=== PATIENT | male | born 1950 | race Caucasian/White ===

== ENCOUNTER → 2017-12-25 | Outpatient (CLI) | payer MEDICARE ==
--- NOTE | 2017-12-25 11:25 | EST ---
EXERCISE STRESS DATE OF SERVICE: 12/25/2017 AGE: 67 SEX: Male HT: 5'11" WT: 260 PROTOCOL: Abhijit STAGE: II DURATION OF EXERCISE: 7-1/2 minutes HEART RATE REST: 66 BLOOD PRESSURE REST: 136/99 MAXIMUM HEART RATE ACHIEVED: 137 MAXIMUM BLOOD PRESSURE: 242/81 85% MPHR: 131 100% MPHR: 154 METS: 9 INDICATIONS: Chest pain. CLINICAL INFORMATION: Baseline EKG shows sinus rhythm, normal axis, normal intervals. Patient exercised on Abhijit protocol for a total of 7-1/2 minutes achieving 9 METS, 88% of predicted maximal heart rate without chest pain or diagnostic ST-segment depression. CONCLUSIONS: 1. Average exercise tolerance. 2. Negative stress test by EKG criteria. MMODL / IJN: [id number] /
== END | disposition home or self-care (01) ==
LOC: RADNMMAIN 10:06
PROVIDERS: ATTEND Nurse Practitioner Family
DX: I10 Essential (primary) hypertension (principal); E78.5 Hyperlipidemia, unspecified
CPT/HCPCS: 93017

== ENCOUNTER 2018-01-04 06:32 | Day surgery (SDC) | payer MEDICARE ==
[2018-01-02 14:35] VITALS: BMI 36.2
[~2018-01-04 06:32] MED LIST: LACTATED RINGERS 1,000 ML IV SCH
[2018-01-04 06:58] VITALS: RESP 16; TEMP 97.3
[2018-01-04] MEDS ORDERED: LIDOCAINE 1% 20 ML VIAL (10MG/ML) FOR IV START INTRADERMA ONE (07:03)
[2018-01-04] MEDS ORDERED: PROPOFOL 10 MG/ML 20 ML VIAL IV ONE (07:47)
--- NOTE | 2018-01-04 08:11 | P.PCN ---
Date of Procedure: 01/04/18 Procedure(s) Performed: BRIEF HISTORY: Patient is a 67-year-old pleasant White male, scheduled for an elective colonoscopy as a part of screening for colorectal neoplasia PROCEDURE PERFORMED: Colonoscopy. PREOPERATIVE DIAGNOSIS: Screening for colon cancer. IV sedation per Anesthesia. PROCEDURE: After informed consent was obtained, the patient, was brought into the endoscopy unit. IV sedation was administered by Anesthesia under continuous monitoring. Digital rectal examination was normal. Initially the Olympus CF- 160 flexible video colonoscope was then inserted in the rectum, gradually advanced into the cecum without any difficulty. Careful examination was performed as the scope was gradually being withdrawn. Ileocecal valve and the appendiceal orifice were visualized and appeared normal. Prep was excellent. Mucosa of the cecum, ascending colon, transverse colon, descending colon, sigmoid colon, and rectum appeared normal. Retroflexion was performed in the rectum and no lesions were seen. The patient tolerated the procedure well. IMPRESSION: Normal-appearing colon from rectum to cecum with no evidence of colorectal neoplasia . RECOMMENDATIONS: Findings of this examination were discussed with the patient as well as his family. He was advised to have a repeat screening colonoscopy in 10 years.
[2018-01-04 08:37] VITALS: BP 116/72; PULSE 77
== END 2018-01-04 08:39 | disposition home or self-care (01) ==
LOC: ORWHC2ENDO 06:32
PROVIDERS: ATTEND Internal Medicine Gastroenterology
DX: Z12.11 Encounter for screening for malignant neoplasm of colon (principal); I10 Essential (primary) hypertension; E78.5 Hyperlipidemia, unspecified; Z79.82 Long term (current) use of aspirin; Z79.899 Other long term (current) drug therapy; Z80.0 Family history of malignant neoplasm of digestive organs
CPT/HCPCS: J2704; G0105

== ENCOUNTER → 2024-02-28 | Outpatient (CLI) | payer MEDICARE ==
--- NOTE | 2024-02-28 11:24 | CA ---
Transthoracic Echo Report Name: Homer Hollins Age: 73 Gender: M : 1950 Exam Date: 02/28/2024 08:36 Exam Location: [place] [facility] Ht (in): 71 Wt (lb): 260 Ordering Physician: Manjit Ramirez MD Attending/Referring Phys: Serena Reddy PENDING SALE TO [facility] Aide Jamee Espino RDCS Procedure CPT: Indications: R53.83 OTHER FATIGUE,R07.9 CHEST PAIN, UNSPECIFIED Cardiac Hx: Technical Quality: Technically difficult study Contrast 1: Definity Total Dose (mL): 2 Contrast 2: Total Dose (mL): MEASUREMENTS (Male / Female) Normal Values 2D ECHO LV Diastolic Diameter PLAX 4.2 cm 4.2 - 5.9 / 3.9 - 5.3 cm LV Systolic Diameter PLAX 2.9 cm IVS Diastolic Thickness 1.2 cm 0.6 - 1.0 / 0.6 - 0.9 cm LVPW Diastolic Thickness 1.2 cm 0.6 - 1.0 / 0.6 - 0.9 cm LV Relative Wall Thickness 0.6 RV Internal Dim ED PLAX 3.1 cm LA Systolic Diameter LX 2.9 cm 3.0 - 4.0 / 2.7 - 3.8 cm M-MODE Aortic Root Diameter MM 3.8 cm LA Systolic Diameter MM 2.0 cm LA Ao Ratio MM 0.5 DOPPLER AV Peak Velocity 109.4 cm/s AV Peak Gradient 4.8 mmHg Mitral E Point Velocity 49.1 cm/s Mitral A Point Velocity 82.7 cm/s Mitral E to A Ratio 0.6 MV Deceleration Time 299.5 ms TR Peak Velocity 233.6 cm/s TR Peak Gradient 21.8 mmHg Right Ventricular Systolic Press 26.8 mmHg FINDINGS Left Ventricle Left ventricular ejection fraction is estimated at 50 %. Left ventricular cavity size normal. Mildly increased septal wall thickness. Normal left ventricular wall motion. Right Ventricle Normal right ventricular size and function. Right ventricular systolic pressure within normal limits. Right Atrium Normal right atrial size. Left Atrium Normal left atrial size. No left atrial thrombus or mass present. Mitral Valve Structurally normal mitral valve. No mitral stenosis, regurgitation or prolapse. Aortic Valve Trileaflet aortic valve. No aortic valve stenosis or regurgitation. Tricuspid Valve Structurally normal tricuspid valve. Trace to mild tricuspid regurgitation. Pulmonic Valve Structurally normal pulmonic valve. No pulmonic regurgitation. Pericardium No pericardial effusion. Aorta Mild aortic dilatation at the level of the sinuses of valsalva 38 mm CONCLUSIONS Technically difficult study for interpretation. Definity was used Low normal LV systolic function with EF at 50% Previewed by: Dr. James Tipton MD (Electronically Signed) Final Date: 28 February 2024 11:23
--- NOTE | 2024-02-28 11:31 | CA ---
Exercise Stress Test Report Name: Homer Hollins Exam Date: 02/28/2024 09:49 Exam Location: [place] Stress Ht (in): 71 Wt (lb): 260 BSA: 2.36 Ordering Phys: Manjit Ramirez MD Referring Phys: Serena Reddy Technologist: Emre Aguila Age: 73 Gender: M : 1950 Procedure CPT: Indications: R53.83 OTHER FATIGUE,R07.9 CHEST PAIN, UNSPECIFIED ICD-10 Codes: Patient History: Medications: LISINOPRIL, CHOLESTEROL MED, ASPIRIN Meds past 24 hrs: Pretest Chest Pain: STRESS TEST Abhijit Protocol Exercise Duration (min:sec): 06:[address] Depressions (mm): Angina Score: Fong Score: Resting HR (bpm): 75 Peak HR (bpm): 128 Resting BP (mmHg): 149 / 92 Peak BP (mmHg): 218 / 99 MPHR: 148 Target HR: 126 % MPHR: 86 METS: 9.7 Total Dose: Peak Dose: Atropine: Double Product: 62353 BP Response: Stress Termination: Reached target heart rate Stress Symptoms: SHORTNESS OF BREATH Stress Summary: ECG ANALYSIS Resting ECG: Stress ECG: CONCLUSIONS Good exercise tolerance Normal electrocardiogram in response to exercise Dr. James Tipton MD (Electronically Signed) Final Date: 28 February 2024 11:30
== END | disposition home or self-care (01) ==
LOC: RADECHMAIN 08:15
PROVIDERS: ATTEND Family Medicine
DX: R53.83 Other fatigue (principal); R07.9 Chest pain, unspecified
CPT/HCPCS: 93017; C8929; Q9957; 93306

== ENCOUNTER → 2024-04-07 | Outpatient (CLI) | payer MEDICARE ==
[2024-04-07 10:44] LABS: INR 0.9 (<1.2); Partial Thromboplastin Time 24.3 sec (22.0-30.0); Prothrombin Time 10.5 sec (10.0-12.5)
[2024-04-07 17:17] LABS: HCT 45.1 % (39.6-50.0); HGB 15.5 g/dL (13.0-17.0); MCH 33.5 pg (27.0-32.0); MCHC 34.4 g/dL (32.0-37.0); MCV 97.4 FL (80.0-97.0); Mean Platelet Volume 10.4 FL (9.5-12.2); NRBC Per 100 WBC 0 X 10*3/uL (0.00-0.01); Platelet Count 197 X 10*3/uL (140-440); RBC 4.63 X 10*6/uL (4.40-5.60); RDW 12.4 % (11.5-14.5); WBC 5.72 X 10*3/uL (4.50-10.00)
[2024-04-07 17:32] LABS: ALT 32 U/L (10-49); AST 29 U/L (14-35); Albumin 4.3 g/dL (3.8-4.9); Albumin/Globulin Ratio 1.65 Ratio (1.60-3.17); Alkaline Phosphatase 54 U/L (41-126); Blood Urea Nitrogen 20.1 mg/dL (9.0-27.0); Calcium 9.2 mg/dL (8.7-10.3); Carbon Dioxide 26.2 mmol/L (21.6-31.8); Chloride 106 mmol/L (96-109); Globulin 2.6 g/dL (1.6-3.3); Glucose 127 mg/dL (70-110); Potassium 4.1 mmol/L (3.5-5.5); Sodium 143 mmol/L (135-145); Total Bilirubin 0.7 mg/dL (0.3-1.2); Total Protein 6.9 g/dL (6.2-8.2)
== END | disposition home or self-care (01) ==
LOC: LABPAT 10:01
PROVIDERS: ATTEND Orthopaedic Surgery
DX: Z01.818 Encounter for other preprocedural examination (principal); E11.9 Type 2 diabetes mellitus without complications; M16.11 Unilateral primary osteoarthritis, right hip; Z22.322 Carrier or suspected carrier of Methicillin resistant Staphylococcus aureus
CPT/HCPCS: 80053; 83036; 85027; 85610; 85730; 86850; 86900; 86901; 87070; 93005

== ENCOUNTER 2024-04-17 11:00 | Inpatient (IN) | payer MEDICARE ==
[~2024-04-17 11:00] MED LIST changes: +ASPIRIN 81 MG ONE; -LACTATED RINGERS 1,000 ML IV SCH; +SENNOSIDES-DOCUSATE SODIUM 1 EACH TAB PO ONE
[2024-04-17] MEDS ORDERED: HYDROcodone/APAP 5-325MG 1 EACH TAB ONE (12:07)
--- NOTE | 2024-05-14 16:57 | FL ---
Fluoroscopy INDICATION: Pain FINDINGS: Fluoroscopy time: 25 seconds. Total dose area product (DAP) in uGy*m?, mGy*cm? (or similar): 1.4988 Images obtained: 0. IMPRESSION: 1. Documentation of fluoroscopy.
== END 2024-04-18 22:10 | disposition home health service (06) | DRG 470 ==
LOC: OR 11:00 → DISRECOVER 12:11
PROVIDERS: ADMIT Orthopaedic Surgery; ATTEND Orthopaedic Surgery
PROC: 0SR904A Replacement of Right Hip Joint with Ceramic on Polyethylene Synthetic Substitute, Uncemented, Open Approach (ICD-10-PCS; principal; 2024-04-16)
DX: M16.11 Unilateral primary osteoarthritis, right hip (principal); E78.5 Hyperlipidemia, unspecified; I10 Essential (primary) hypertension; Z96.652 Presence of left artificial knee joint; Z96.642 Presence of left artificial hip joint; Z79.1 Long term (current) use of non-steroidal anti-inflammatories (NSAID); Z88.8 Allergy status to other drugs, medicaments and biological substances; Z79.899 Other long term (current) drug therapy

== ENCOUNTER → 2025-03-16 | Outpatient (CLI) | payer MEDICARE ==
--- NOTE | 2025-03-16 07:57 | MR ---
EXAMINATION TYPE: MR brain wo/w con DATE OF EXAM: 03/16/2025 6:44 AM COMPARISON: None. CLINICAL INDICATION: Male, 74 years old with history of R20.0 ANESTHESIA OF SKIN; PHH, Dizziness, num bness in extremities. TECHNIQUE: Multi planar, multi sequence imaging was performed through the brain including: T1, T2, In version recovery, susceptibility weighted imaging and gradient echo imaging and Diffusion weighted im aging. The patient was then given intravenous contrast and multi planar, T1 fat-saturation images wer e obtained. IV Contrast: 12 mL Gadobutrol FINDINGS: Mild cerebral atrophy with proportional dilation of ventricular system. Diffusion-weighted imaging s hows no evidence of restricted diffusion to suggest acute/subacute infarct. Intracranial arterial desire w voids are maintained. Midline structures show no abnormality. Scattered foci of high T2 signal inte nsity are seen within the periventricular white matter. The susceptibility weighted images do not rev eal any evidence for micro-hemorrhage. After administration of gadolinium, no abnormal enhancement is seen. The bone marrow signal is within normal limits. Paranasal sinuses and mastoid air cells: Mild scattered paranasal sinus disease. Visualized orbits: Orbital contents are intact. IMPRESSION: 1. No evidence of intracranial mass, acute/subacute infarct, or abnormal enhancement. 2. Nonspecific white matter changes, likely related to small vessel ischemic disease. [facility], , 03/16/2025 7:54 AM
== END | disposition home or self-care (01) ==
LOC: RADMRIMAIN 05:58
PROVIDERS: ATTEND Family Medicine
DX: R90.82 White matter disease, unspecified (principal); R20.0 Anesthesia of skin; R42 Dizziness and giddiness
CPT/HCPCS: 70553; A9585